=== PATIENT | female | born 1940 | race Caucasian/White ===

== ENCOUNTER 2018-06-08 06:08 | Observation (INO) | payer MEDICARE ==
[2018-06-07 09:55] VITALS: BP 163/95
[2018-06-07 10:30] LABS: BASOPHILS # (AUTO) 0.04 x10^3/uL (0-0.1); BASOPHILS % (AUTO) 0 % (0-1); EOSINOPHILS # (AUTO) 0.34 x10^3/uL (0-0.4); EOSINOPHILS % (AUTO) 3 % (1-7); LYMPHOCYTES # (AUTO) 2.46 x10^3/uL (1-3.4); LYMPHOCYTES % (AUTO) 24 % (22-44); MD NO; MEAN CORPUSCULAR HEMOGLOBIN 30.7 pg (27.0-34.8); MEAN CORPUSCULAR HGB CONC 32.9 g/dL (32.4-35.8); MEAN CORPUSCULAR VOLUME 93.3 fL (80-100); MEAN PLATELET VOLUME 9.9 fL (7.4-10.4); MONOCYTES # (AUTO) 0.81 x10^3/uL (0.2-0.8); MONOCYTES % (AUTO) 8 % (2-9); NEUTROPHILS # (AUTO) 6.79 x10^3/uL (1.8-6.8); NEUTROPHILS % (AUTO) 65 % (42-75); PLATELET COUNT 284 x10^3/uL (130-400); RED BLOOD COUNT 4.72 x10^6/uL (3.82-5.3)
[2018-06-07 10:40] LABS: ANION GAP 6 mmol/L (5-15); CALCIUM 9.2 mg/dL (8.5-10.1); CHLORIDE 104 mmol/L (98-107); CREATININE 0.87 mg/dL (0.55-1.02)
[~2018-06-08] VITALS: Ht 157.5 cm; Wt 76.4 kg
[~2018-06-08 06:08] MED LIST: APIX5TAB PO; ASPI325T17 PO; ASPI81TA45 PO; ATEN25TA PO; ATOR10TA9 PO; CLOP75TA PO; DIPH25CA61 PO; FLEC100T PO; FLEC50TA25 PO; IRBE75TA10 PO; MELA3TAB15 PO; RIVA20TA PO
[2018-06-08] MEDS ORDERED: SODIUM CHLORIDE 0.9% 1,000 ML IV SCH (07:21)
[2018-06-08] MEDS ORDERED: SODIUM CHLORIDE 0.9% 1,000 ML IV ONE (07:30)
[2018-06-08] MEDS ORDERED: FENTANYL PF 250 MCG/5ML ONE (07:31)
[2018-06-08] MEDS ORDERED: PROPOFOL 50 ML ONE (07:31)
[2018-06-08] MEDS ORDERED: MIDAZOLAM 1 MG/ML, 2ML ONE (07:31)
[2018-06-08] MEDS ORDERED: SPIR25TA5 PO (07:37)
[2018-06-08] MEDS ORDERED: ACYC-114 PO (07:37)
[2018-06-08] MEDS ORDERED: ATEN25TA PO (07:37)
[2018-06-08] MEDS ORDERED: FURO-93 PO (07:37)
[2018-06-08] MEDS ORDERED: FLEC50TA25 PO (07:37)
[2018-06-08] MEDS ORDERED: PROTAMINE SULFATE 10 MG/ML, 5ML ONE (07:38)
[2018-06-08] MEDS ORDERED: LIDOCAINE 1%, 20ML ONE (07:38)
[2018-06-08] MEDS ORDERED: APIXABAN 5 MG TABLET ONE (08:49)
[2018-06-08] MEDS ORDERED: ACYCLOVIR 400 MG TABLET PO PRN (12:00)
[2018-06-08] MEDS ORDERED: FUROSEMIDE 20 MG TABLET PO PRN (12:00)
[2018-06-08] MEDS ORDERED: SPIRONOLACTONE 25 MG TABLET PO PRN (12:00)
[2018-06-08] MEDS ORDERED: DIPHENHYDRAMINE 25 MG CAPSULE PO PRN (12:00)
[2018-06-08] MEDS: APIXABAN 5 MG TABLET PO SCH ×2 (12:00→21:08)
[2018-06-08] MEDS ORDERED: ACETAMINOPHEN 650 MG/20.3 ML UDC ONE (12:58)
[2018-06-08] MEDS: ACETAMINOPHEN 325 MG TABLET PO PRN ×2 (12:59→21:08)
[2018-06-08 14:20] VITALS: BP 106/66
[2018-06-08] MEDS ORDERED: DEXAMETHASONE 4 MG/ML, 1ML ONE (16:17)
[2018-06-08] MEDS ORDERED: ONDANSETRON 2MG/ML, 2ML ONE (16:17)
[2018-06-08] MEDS ORDERED: PROPOFOL 10 MG/ML, 20ML ONE (16:17)
[2018-06-08] MEDS ORDERED: SUCCINYLCHOLINE 20 MG/ML, 10ML ONE (16:17)
[2018-06-08] MEDS ORDERED: ROCURONIUM 10MG/ML,5ML ONE (16:17)
[2018-06-08 20:32] VITALS: BP 130/76
[2018-06-08] MEDS ORDERED: MELATONIN 3 MG TABLET PO SCH (21:00)
[2018-06-08] MEDS: FLECAINIDE 50MG TABLET PO SCH (21:08)
[2018-06-09 01:02] VITALS: BP 132/78
[2018-06-09] MEDS: ACETAMINOPHEN 325 MG TABLET PO PRN (01:15)
[2018-06-09 06:42] VITALS: BP 117/72
[2018-06-09] MEDS ORDERED: ATENOLOL 25 MG TABLET PO SCH (09:00)
[2018-06-09] MEDS ORDERED: APIX5TAB PO (09:56)
[2018-06-09] MEDS ORDERED: FUROSEMIDE 20 MG TABLET PO PRN (10:00)
[2018-06-09] MEDS: APIXABAN 5 MG TABLET PO SCH (10:25)
[2018-06-09] MEDS: FLECAINIDE 50MG TABLET PO SCH (10:25)
== END 2018-06-09 11:12 | disposition home or self-care (01) ==
LOC: CACL 06:08 → EDSTATUS 08:00 → ORIP 11:40 → 5SO 13:05 → DCLOUNGE 06-09 10:49
PROVIDERS: ADMIT Internal Medicine Cardiovascular Disease; ATTEND Internal Medicine Cardiovascular Disease
DX: I48.91 Unspecified atrial fibrillation (principal); I48.92 Unspecified atrial flutter; Z79.01 Long term (current) use of anticoagulants
CPT/HCPCS: 0399T; 36415; 80048; 85025; 85347; 93306; 93312; 93325; 93613; 93655; 93656; 93662; C1730; C1731; C1759; C1766; C1893; C1894; C2630; G0378; J0330; J1100; J2250; J2405; J2704; J2720; J3010; J3490